=== PATIENT | male | born 1995 | race Hispanic/Latino ===

== ENCOUNTER 2016-12-16 23:07 | Emergency (ER) | payer SELFPAY ==
[2016-12-16 23:12] VITALS: BP 129/82; PULSE 90; RESP 20; TEMP 98.7; O2SAT 100
--- NOTE | 2016-12-16 23:43 | C.PDOC ---
History Of Present Illness Patient is a 21 year old male who presents to the ER with a complaint of right ankle pain and swelling. Patient states he was playing basketball at 20:30 tonight when he twisted his ankle. Patient states the pain worsens with movement. Denies any other trauma. No change in sensation. Time Seen by Provider: 12/16/16 23:10 Chief Complaint (Nursing): Lower Extremity Problem/Injury History Per: Patient History/Exam Limitations: no limitations Onset/Duration Of Symptoms: Hrs (20:30) Current Symptoms Are (Timing): Still Present - Ankle/Foot Description Of Injury: Twisted (Playing basketball) Past Medical History Reviewed: Historical Data, Nursing Documentation, Vital Signs Vital Signs: Last Vital Signs Temp 98.7 F 12/16/16 23:09 Pulse 90 12/16/16 23:09 Resp 20 12/16/16 23:09 BP 129/82 12/16/16 23:09 Pulse Ox 100 12/17/16 01:23 - Medical History PMH: No Chronic Diseases Surgical History: No Surg Hx Family History: States: Unknown Family Hx - Social History Hx Alcohol Use: No Hx Substance Use: No - Immunization History Hx Tetanus Toxoid Vaccination: No Hx Influenza Vaccination: No Hx Pneumococcal Vaccination: No Review Of Systems Musculoskeletal: Positive for: Foot Pain (Right ankle pain and swelling). Negative for: Leg Pain Physical Exam - Physical Exam Appears: Well, Non-toxic, No Acute Distress Skin: Normal Color, Warm, Dry Head: Atraumatic, Normacephalic Eye(s): bilateral: Normal Inspection, EOMI Nose: Normal Oral Mucosa: Moist Chest: Symmetrical Respiratory: No Accessory Muscle Use, Other (Speaking in full sentences) Extremity: Tenderness (Right ankle, lateral aspect), No Calf Tenderness, Capillary Refill (< 2 sec), Swelling (Right ankle, lateral aspect) Pulses: Left Dorsalis Pedis: Normal, Right Dorsalis Pedis: Normal Neurological/Psych: Oriented x3, Normal Speech, Normal Motor, Normal Sensation, Other (No focal deficits) ED Course And Treatment O2 Sat by Pulse Oximetry: 100 (Room air) Pulse Ox Interpretation: Normal Progress Note: Motrin PO administered. X-ray of the right ankle ordered. Stirrup splint and crutches given with instructions. instructed RICE and outpt f /u Disposition - Disposition Disposition: HOME/ ROUTINE Disposition Time: 00:23 Condition: STABLE Additional Instructions: Rest, ice and elevate the area. Follow up with bone doctor in 1-[address] Delgado: [phone] [place] [address] Prescriptions: Ibuprofen [Motrin] 400 mg PO Q6 PRN #20 tab PRN Reason: Fever Instructions: Ankle Sprain (ED) - Clinical Impression Clinical Impression: Ankle sprain - Scribe Statement The provider has reviewed the documentation as recorded by the Scribbonifacio Houser All medical record entries made by the Zhaoibbonifacio were at my direction and personally dictated by me. I have reviewed the chart and agree that the record accurately reflects my personal performance of the history, physical exam, medical decision making, and the department course for this patient. I have also personally directed, reviewed, and agree with the discharge instructions and disposition.
--- NOTE | 2016-12-17 08:34 | RAD ---
PROCEDURE: Right Ankle Radiographs. HISTORY: pain COMPARISON: None FINDINGS: BONES: Normal. No fracture. JOINTS: Normal. No osteoarthritis. Ankle mortise maintained. Talar dome intact SOFT TISSUES: Lateral soft tissue swelling. OTHER FINDINGS: None. IMPRESSION: No fracture identified. Lateral soft tissue swelling.
== END 2016-12-17 00:38 | disposition home or self-care (01) ==
LOC: C.ER 23:07
DX: S93.401A Sprain of unspecified ligament of right ankle, initial encounter (principal); X50.1XXA Overexertion from prolonged static or awkward postures, initial encounter; Y93.67 Activity, basketball; Y92.89 Other specified places as the place of occurrence of the external cause